=== PATIENT | female | born 1980 | race African-American/Black ===

== ENCOUNTER 2019-06-14 13:09 | Emergency (ER) | payer MEDICAID ==
[~2019-06-14] VITALS: Ht 162.6 cm; Wt 108.9 kg
--- NOTE | 2019-06-14 13:28 | NUR ---
PATIENT [id number], HOMELESS, FOUND SITTING ON THE SIDE WALK, PT VERBALIZED "LIFE SUCKS, I HAVE THOUGHTS THAT I AM GONNA TODAY" SUICIDE PRECAUTIONS INITIATED. SITTER AT BEDSIDE. WILL CONTINUE TO MONITOR
[2019-06-14 13:36] LABS: BASOPHILS # (AUTO) 0.1 /CMM (0.0-0.2); BASOPHILS % (AUTO) 0.8 % (0.0-2.0); EOSINOPHILS % (AUTO) 0.6 % (0.0-6.0); HEMATOCRIT 42 % (33-45); HEMOGLOBIN 14.3 g/dL (11.5-14.8); LYMPHOCYTES # (AUTO) 2.2 /CMM (0.8-4.8); LYMPHOCYTES % (AUTO) 28.6 % (20.0-44.0); MEAN CORPUSCULAR HGB CONC 34 g/dl (31.0-36.0); MEAN CORPUSCULAR VOLUME 93 fL (82-100); MONOCYTES # (AUTO) 0.9 /CMM (0.1-1.30); MONOCYTES % (AUTO) 12.4 % (2.0-12.0); NEUTROPHILS # (AUTO) 4.4 /CMM (1.8-8.9); NEUTROPHILS % (AUTO) 57.6 % (43.0-81.0); PLATELET COUNT (AUTO) 270 /CMM (150-450); RED BLOOD CELL COUNT(AUTO) 4.54 MIL/uL (4.0-5.2); WHITE BLOOD COUNT (AUTO) 7.6 K/uL (4.3-11.0)
[2019-06-14 13:54] LABS: ALBUMIN 3.7 g/dL (3.4-5.0); BILIRUBIN,DIRECT 0.2 mg/dL (0.0-0.2); BILIRUBIN,TOTAL 0.8 mg/dL (0.2-1.0); CREATININE 1.2 mg/dL (0.6-1.3); POTASSIUM 3.8 mmol/L (3.5-5.1); SALICYLATE 3.6 mg/dL (2.8-20.0); TOTAL PROTEIN, SERUM 7.4 g/dL (6.4-8.2)
[2019-06-14] MEDS ORDERED: IV NS 0.9% 1,000 ML BAG IV ONE (14:00)
[2019-06-14] MEDS ORDERED: OLANZAPINE 5 MG TABLET PO ONE ×2 (14:30)
[2019-06-14] MEDS ORDERED: LORAZEPAM 1 MG TABLET PO ONE (14:30)
[2019-06-14] MEDS ORDERED: OLANZAPINE 5 MG TABLET ONE (14:48)
--- NOTE | 2019-06-14 15:01 | NUR ---
patient refused Iv insertion and Iv fluids. verbalized " I dont need IV and I dont need any fluids" Jeffrey CARMONA aware. will continue to monitor
[2019-06-14 15:40] LABS: APPEARANCE,URINE SL CLOUDY (CLEAR); BILIRUBIN,URINE SMALL (NEGATIVE); BLOOD, URINE MODERATE Ery/uL (NEGATIVE); COLOR,URINE YELLOW (YELLOW); KETONES,URINE 15 (NEGATIVE); LEUKOCYTE ESTERASE ,URINE NEGATIVE (NEGATIVE); NITRITE, URINE NEGATIVE (NEGATIVE); PH,URINE 5.5 (5.0-8.0); PROTEIN,URINE NEGATIVE (NEGATIVE); UGLUCOSE NEGATIVE (NEGATIVE); UROBILINOGEN,URINE 0.2 EU/dL (0.2)
[2019-06-14 16:03] LABS: BACTERIA,URINE 1+ /HPF (None Seen); SQUAMOUS EPITHELIAL CELL,UR 0-2 /HPF (None Seen); WBC,URINE 0-2 /HPF (0-3)
[2019-06-14 16:04] LABS: MUCUS,URINE Few /LPF (None Seen); URINE AMORPHOUS URATE Few /HPF (None Seen)
[2019-06-14] MEDS ORDERED: IBUPROFEN 400 MG TABLET ONE (16:48)
[2019-06-14] MEDS ORDERED: IBUPROFEN 400 MG TABLET PO ONE (17:00)
--- NOTE | 2019-06-14 17:08 | NUR ---
CALLED TI [phone] [facility].
--- NOTE | 2019-06-14 17:52 | NUR ---
DPatient discharged to home in stable condition. Written and verbal after care instructions given. Patient verbalizes understanding of instruction. Written prescription provided to patient. ID band removed. patient refused resources. refused TAP card. verbalized she will arrange her own transportation. homesless waiver signed and witnessed by licensed staff
[2019-06-14 17:55] VITALS: BP 134/84
== END 2019-06-14 17:56 | disposition home or self-care (01) ==
LOC: ER 13:13
DX: F19.10 Other psychoactive substance abuse, uncomplicated (principal); F32.9 Major depressive disorder, single episode, unspecified; F41.9 Anxiety disorder, unspecified; F20.9 Schizophrenia, unspecified; F15.10 Other stimulant abuse, uncomplicated; F14.10 Cocaine abuse, uncomplicated
CPT/HCPCS: 36415; 80048; 80076; 80305; 80307; 80329; 81001; 84703; 85025; 99283; G0480; 81000-TC